=== PATIENT | male | born 1935 | race Caucasian/White ===

== ENCOUNTER → 2016-09-25 | Outpatient (CLI) | payer MEDICARE ==
[2016-09-25 13:00] LABS: HEMOGLOBIN 14.6 g/dL (13.7-18.0); WHITE BLOOD COUNT 6.9 x10^3/uL (3.4-10)
[2016-09-25 13:07] LABS: ASPARTATE AMINO TRANSFERASE 13 U/L (15-37); BLOOD UREA NITROGEN 17 mg/dL (7-18)
== END | disposition home or self-care (01) ==
LOC: CFH 08:36
PROVIDERS: ATTEND Nurse Practitioner Family
DX: M17.11 Unilateral primary osteoarthritis, right knee (principal); M25.461 Effusion, right knee; I12.9 Hypertensive chronic kidney disease with stage 1 through stage 4 chronic kidney disease, or unspecified chronic kidney disease; N18.3 Chronic kidney disease, stage 3 (moderate)
CPT/HCPCS: 36415; 80053; 84550; 85025

== ENCOUNTER → 2017-02-27 | Outpatient (CLI) | payer MEDICARE ==
[~2017-02-27] MED LIST: DOXA4TAB3 PO; FINA5TAB4 PO; LISI-170 PO; TRAM50TA2 PO
[2017-02-27 13:44] LABS: INTERNATIONAL NORMALIZED RATIO 1.01 (0.93-1.1); PROTHROMBIN TIME 10.5 Seconds (9.6-11.5)
[2017-02-27 13:48] LABS: ALANINE AMINOTRANSFERASE 16 U/L (12-78); ALBUMIN 3.5 g/dL (3.4-5.0); ANION GAP 8 mmol/L (5-15); CALCIUM 8.7 mg/dL (8.5-10.1); CHLORIDE 107 mmol/L (98-107); CREATININE 1.34 mg/dL (0.7-1.3)
[2017-02-27 13:50] LABS: BASOPHILS # (AUTO) 0.08 x10^3/uL (0-0.1); BASOPHILS % (AUTO) 1 % (0-1); EOSINOPHILS # (AUTO) 0.19 x10^3/uL (0-0.4); EOSINOPHILS % (AUTO) 2 % (1-7); LYMPHOCYTES # (AUTO) 1.14 x10^3/uL (1-3.4); LYMPHOCYTES % (AUTO) 12 % (22-44); MD NO; MEAN CORPUSCULAR HGB CONC 33.2 g/dL (33.2-36.2); MEAN CORPUSCULAR VOLUME 90.4 fL (81-97); MEAN PLATELET VOLUME 10.3 fL (7.4-10.4); MONOCYTES # (AUTO) 0.84 x10^3/uL (0.2-0.8); MONOCYTES % (AUTO) 9 % (2-9); NEUTROPHILS # (AUTO) 7.22 x10^3/uL (1.8-6.8); NEUTROPHILS % (AUTO) 76 % (42-75); PLATELET COUNT 210 x10^3/uL (130-400); RED CELL DISTRIBUTION WIDTH 14.9 % (9.4-14.8)
[2017-02-27 13:51] LABS: ALKALINE PHOSPHATASE 96 U/L (45-117); BILIRUBIN,TOTAL 0.6 mg/dL (0.2-1.0); TOTAL PROTEIN 7.3 g/dL (6.4-8.2)
[2017-02-27 14:02] LABS: HEMOGLOBIN A1C 5.6 % (4.2-6.3)
== END | disposition home or self-care (01) ==
LOC: STAR 12:38
PROVIDERS: ATTEND Orthopaedic Surgery
DX: Z01.818 Encounter for other preprocedural examination (principal); I12.9 Hypertensive chronic kidney disease with stage 1 through stage 4 chronic kidney disease, or unspecified chronic kidney disease; N18.3 Chronic kidney disease, stage 3 (moderate); M17.11 Unilateral primary osteoarthritis, right knee; Z87.891 Personal history of nicotine dependence; Z72.89 Other problems related to lifestyle; Z79.899 Other long term (current) drug therapy; I49.3 Ventricular premature depolarization
CPT/HCPCS: 36415; 80053; 83036; 85025; 85610; 85730; 87081; 93005

== ENCOUNTER 2018-04-03 17:09 | Inpatient (IN) | payer MEDICARE ==
[~2018-04-03] VITALS: Ht 195.6 cm; Wt 87.0 kg
[~2018-04-03 17:09] MED LIST changes: +MELO7.5T31 PO; +ONDA4TAB12 PO; +OXYC5TAB3 PO
[2018-04-03 17:46] LABS: BASOPHILS % (AUTO) 0 % (0-1); EOSINOPHILS % (AUTO) 2 % (1-7); LYMPHOCYTES # (AUTO) 0.53 x10^3/uL (1-3.4); LYMPHOCYTES % (AUTO) 5 % (22-44); MD NO; MEAN CORPUSCULAR HEMOGLOBIN 31.4 pg (27.5-34.5); MEAN CORPUSCULAR HGB CONC 33.8 g/dL (33.2-36.2); MEAN CORPUSCULAR VOLUME 92.7 fL (81-97); MONOCYTES # (AUTO) 1.28 x10^3/uL (0.2-0.8); MONOCYTES % (AUTO) 12 % (2-9); NEUTROPHILS # (AUTO) 8.43 x10^3/uL (1.8-6.8); NEUTROPHILS % (AUTO) 81 % (42-75); PLATELET COUNT 241 x10^3/uL (130-400); RED BLOOD COUNT 4.86 x10^6/uL (4.38-5.82); RED CELL DISTRIBUTION WIDTH 13.9 % (9.4-14.8)
[2018-04-03 17:57] LABS: ALANINE AMINOTRANSFERASE 24 U/L (12-78); ALBUMIN 3.2 g/dL (3.4-5.0); ANION GAP 6 mmol/L (5-15); CALCIUM 8.5 mg/dL (8.5-10.1); CHLORIDE 111 mmol/L (98-107); CREATININE 2.47 mg/dL (0.7-1.3)
[2018-04-03 17:59] LABS: ALKALINE PHOSPHATASE 70 U/L (45-117); BILIRUBIN,TOTAL 0.5 mg/dL (0.2-1.0); TOTAL PROTEIN 7.4 g/dL (6.4-8.2)
--- NOTE | 2018-04-03 18:47 | NUR ---
PT AMBULATORY FROM LOBBY TO ED ROOM 3 IN [facility].
--- NOTE | 2018-04-03 19:07 | NUR ---
REPORT FROM ERWIN LOPEZ. PT RESTING WITH NO NEEDS AT THIS TIME. CALL LIGHT IN REACH.
[2018-04-03] MEDS ORDERED: SODIUM CHLORIDE 0.9% 1,000ML IVBOLUS ONE (19:30)
[2018-04-03] MEDS ORDERED: SODIUM CHLORIDE FLUSH 10ML SYR IVF ONE (19:30)
--- NOTE | 2018-04-03 19:59 | NUR ---
PIV PLACED IN PT AND IVF STARTED. PT STOOL SPECIMEN WALKED TO LAB.
[2018-04-03] MEDS ORDERED: ACETAMINOPHEN 325 MG TABLET PO PRN (20:30)
[2018-04-03] MEDS ORDERED: LABETALOL 5MG/ML, 20ML IVPush PRN (20:30)
[2018-04-03] MEDS ORDERED: hydrALAzine 20 MG/ML, 1ML IVPush PRN (20:30)
[2018-04-03] MEDS ORDERED: LACTATED RINGERS 1,000 ML IV SCH (20:30)
[2018-04-03] MEDS ORDERED: GUAIFENESIN/DM 200-20MG, 10ML UDC PO PRN (20:30)
[2018-04-03] MEDS ORDERED: ONDANSETRON 2MG/ML, 2ML IVPush PRN (20:30)
[2018-04-03 20:39] LABS: CLOSTRIDIUM DIFFICILE ANTIGEN NEGATIVE; CLOSTRIDIUM DIFFICILE TOXIN NEGATIVE (Negative)
--- NOTE | 2018-04-03 21:00 | NUR ---
PT AMBULATED TO BATHROOM. VSS
[2018-04-03] MEDS ORDERED: METRONIDAZOLE PMX 500MG/100ML 100 ML ONE (21:41)
[2018-04-03] MEDS: METRONIDAZOLE PMX 500MG/100ML 100 ML IV SCH (21:45)
--- NOTE | 2018-04-03 21:49 | NUR ---
MED REC COMPLETE, ABX RUNNING. CALL LIGHT IN REACH
[2018-04-03 22:00] VITALS: BP 143/61
[2018-04-03] MEDS: HEPARIN 5,000 UNITS/ML, 1ML SQ SCH (22:51)
[2018-04-04 02:42] VITALS: BP 122/74
[2018-04-04] MEDS: METRONIDAZOLE PMX 500MG/100ML 100 ML IV SCH (06:04)
[2018-04-04 06:07] LABS: CHLORIDE 116 mmol/L (98-107)
[2018-04-04 06:11] LABS: ANION GAP 10 mmol/L (5-15); CREATININE 2.08 mg/dL (0.7-1.3)
[2018-04-04 06:22] LABS: MEAN CORPUSCULAR HEMOGLOBIN 30.9 pg (27.5-34.5); MEAN CORPUSCULAR HGB CONC 33.6 g/dL (33.2-36.2); MEAN CORPUSCULAR VOLUME 92.1 fL (81-97); MEAN PLATELET VOLUME 11.1 fL (7.4-10.4); PLATELET COUNT 205 x10^3/uL (130-400); RED BLOOD COUNT 4.29 x10^6/uL (4.38-5.82); RED CELL DISTRIBUTION WIDTH 14.4 % (9.4-14.8)
[2018-04-04 06:52] LABS: MD YES
[2018-04-04 07:20] LABS: <PLATELET ESTIMATE> ADEQUATE; <PLT MORPHOLOGY> NORMAL PLT MORPH; <RBC MORPHOLOGY> NORMAL; LYMPH#(MANUAL) 0.74 x10^3/uL (1-3.4); LYMPHS% (MANUAL) 8 % (22-44); MONOS#(MANUAL) 0.55 x10^3/uL (0.3-2.7); MONOS% (MANUAL) 6 % (2-9); SEG#(MANUAL) 7.91 x10^3/uL (1.8-6.8); SEGS% (MANUAL) 86 % (42-75)
[2018-04-04] MEDS: HEPARIN 5,000 UNITS/ML, 1ML SQ SCH ×2 (08:30→20:23)
[2018-04-04] MEDS: PANTOPROZOLE 40MG TABLET PO SCH ×2 (08:52→20:22)
[2018-04-04] MEDS: D5%-0.45NACL+KCL 20MEQ 1,000 ML IV SCH ×2 (08:52→20:21)
[2018-04-04] MEDS: FINASTERIDE 5 MG TABLET PO SCH (09:00)
[2018-04-04 11:43] VITALS: BP 112/57
[2018-04-04 14:00] VITALS: BP 112/64
[2018-04-04 18:51] VITALS: BP 110/63
[2018-04-04] MEDS ORDERED: DOXAZOSIN 2MG TABLET PO SCH (21:00)
[2018-04-05 01:50] VITALS: BP 132/78
[2018-04-05] MEDS: PANTOPROZOLE 40MG TABLET PO SCH (05:16)
[2018-04-05] MEDS: D5%-0.45NACL+KCL 20MEQ 1,000 ML IV SCH (05:17)
[2018-04-05 08:00] VITALS: BP 118/67
[2018-04-05] MEDS: HEPARIN 5,000 UNITS/ML, 1ML SQ SCH (09:14)
[2018-04-05] MEDS: FINASTERIDE 5 MG TABLET PO SCH (09:14)
[2018-04-05 11:03] LABS: ANION GAP 6 mmol/L (5-15); CALCIUM 7.7 mg/dL (8.5-10.1); CHLORIDE 116 mmol/L (98-107); CREATININE 1.55 mg/dL (0.7-1.3)
[2018-04-05 14:00] VITALS: BP 144/79
== END 2018-04-05 16:15 | disposition home or self-care (01) | DRG 371 ==
LOC: ED 20:13 → EDIP 20:14 → 4NOR 22:00
PROVIDERS: ADMIT Internal Medicine; ATTEND Internal Medicine
DX: A04.9 Bacterial intestinal infection, unspecified (principal); N17.0 Acute kidney failure with tubular necrosis; E86.0 Dehydration; E86.1 Hypovolemia; I11.9 Hypertensive heart disease without heart failure; K29.00 Acute gastritis without bleeding; Z96.651 Presence of right artificial knee joint
CPT/HCPCS: 36415; 71046; 80048; 80053; 83690; 85025; 87324; 89055; G0378; J1644; J3480; J7030; J7120

== ENCOUNTER 2020-05-26 11:11 | Outpatient (CLI) | payer MEDICARE ==
[~2020-05-26 11:11] MED LIST changes: +ONDA-89 PO; -ONDA4TAB12 PO; -OXYC5TAB3 PO; +OXYC5TAB98 PO
[2020-05-26 12:59] LABS: ALANINE AMINOTRANSFERASE 16 U/L (12-78); ALBUMIN 3.8 g/dL (3.4-5.0); CALCIUM 8.7 mg/dL (8.5-10.1); CHLORIDE 111 mmol/L (98-107)
[2020-05-26 13:02] LABS: ALKALINE PHOSPHATASE 81 U/L (45-117); BILIRUBIN,TOTAL 0.8 mg/dL (0.2-1.0); CREATININE 1.28 mg/dL (0.7-1.3); TOTAL PROTEIN 7.1 g/dL (6.4-8.2)
[2020-05-26 13:18] LABS: ANION GAP 5 mmol/L (5-15)
[2020-05-26 13:20] LABS: MICROSCOPIC INDICATED
== END 2020-05-26 23:59 | disposition home or self-care (01) ==
LOC: STAR 11:11
PROVIDERS: ATTEND Urology
DX: Z01.812 Encounter for preprocedural laboratory examination (principal); Z20.822 Contact with and (suspected) exposure to COVID-19; N40.1 Benign prostatic hyperplasia with lower urinary tract symptoms
CPT/HCPCS: 36415; 80053; 81001; 87086; 93005; U0003

== ENCOUNTER 2020-06-01 05:33 | Observation (INO) | payer MEDICARE ==
[~2020-06-01] VITALS: Ht 182.9 cm; Wt 90.0 kg
[2020-06-01] MEDS ORDERED: CHLORHEXIDINE 15 ML UDC PO ONE (06:30)
[2020-06-01] MEDS ORDERED: LACTATED RINGERS 1,000 ML IV SCH (06:30)
[2020-06-01] MEDS ORDERED: LIDOCAINE-MPF 1%, 2ML INFIL ONE (06:30)
[2020-06-01] MEDS ORDERED: FENTANYL PF 250 MCG/5ML ONE (07:02)
[2020-06-01] MEDS ORDERED: PHENYLEPHRINE 10 MG/ML ONE (07:23)
[2020-06-01] MEDS ORDERED: CEFAZOLIN 1,000 MG ONE (07:23)
[2020-06-01] MEDS ORDERED: ONDANSETRON 2MG/ML, 2ML ONE (07:23)
[2020-06-01] MEDS ORDERED: PROPOFOL 10 MG/ML, 20ML ONE (07:23)
[2020-06-01] MEDS ORDERED: ONDANSETRON 2MG/ML, 2ML IVPush PRN (08:00)
[2020-06-01] MEDS ORDERED: METOPROLOL 1 MG/ML, 5ML IV PRN (08:00)
[2020-06-01] MEDS ORDERED: hydrALAzine 20 MG/ML, 1ML IV PRN (08:00)
[2020-06-01] MEDS ORDERED: OXYcodone 5 MG/5 ML ORAL.SOL UDC PO PRN (08:00)
[2020-06-01] MEDS ORDERED: PROMETHAZINE 25 MG/ML, 1ML IVPush PRN (08:00)
[2020-06-01] MEDS ORDERED: EPHEDRINE 50 MG/ML, 1ML IVPush PRN (08:00)
[2020-06-01] MEDS ORDERED: ALBUTEROL/IPRATROPIUM 2.5MG/0.5MG, 3 ML NPPB PRN (08:00)
[2020-06-01] MEDS ORDERED: ACETAMINOPHEN 325 MG TABLET PO PRN (08:00)
[2020-06-01] MEDS ORDERED: ALBUTEROL SULFATE 2.5 MG/3 ML NPPB PRN (08:00)
[2020-06-01] MEDS ORDERED: LABETALOL 5MG/ML, 20ML IV PRN (08:00)
[2020-06-01] MEDS ORDERED: HYDROmorphone 1 MG/ML, 1ML INJ IVPush PRN (08:00)
[2020-06-01] MEDS ORDERED: HALOPERIDOL 5 MG/ML IV PRN (08:00)
[2020-06-01] MEDS ORDERED: DIPHENHYDRAMINE 50 MG/ML, 1ML IVPush PRN (08:00)
[2020-06-01] MEDS ORDERED: FENTANYL PF 100 MCG/2ML ONE (09:23)
[2020-06-01] MEDS ORDERED: ACETAMINOPHEN 650 MG/20.3 ML UDC ONE (09:23)
[2020-06-01] MEDS ORDERED: OXYcodone 5 MG/5 ML ORAL.SOL UDC ONE (09:24)
[2020-06-01] MEDS: FENTANYL PF 100 MCG/2ML IV PRN ×2 (09:27→09:41)
[2020-06-01] MEDS ORDERED: HYDROcodone/APAP 5/325 TABLET PO PRN (09:30)
[2020-06-01] MEDS ORDERED: ONDANSETRON 2MG/ML, 2ML IV PRN (09:30)
[2020-06-01 10:15] VITALS: BP 162/77
[2020-06-01 13:15] VITALS: BP 145/52
[2020-06-01] MEDS: LACTATED RINGERS 1,000 ML IV SCH (14:42)
[2020-06-01 19:04] VITALS: BP 129/68
[2020-06-02 00:11] VITALS: BP 123/69
[2020-06-02] MEDS: LACTATED RINGERS 1,000 ML IV SCH (02:05)
[2020-06-02 04:24] VITALS: BP 144/71
[2020-06-02 07:03] VITALS: BP 144/74
[2020-06-02] MEDS ORDERED: FINASTERIDE 5 MG TABLET PO SCH (09:00)
[2020-06-02] MEDS ORDERED: LISINOPRIL 20 MG TABLET PO SCH (09:00)
== END 2020-06-02 12:20 | disposition home or self-care (01) ==
LOC: OUT 05:33 → ORIP 09:03 → 4NE 10:08 → DCLOUNGE 06-02 12:11
PROVIDERS: ADMIT Urology; ATTEND Urology
DX: N40.1 Benign prostatic hyperplasia with lower urinary tract symptoms (principal); N13.8 Other obstructive and reflux uropathy; J45.909 Unspecified asthma, uncomplicated; I10 Essential (primary) hypertension; Z79.899 Other long term (current) drug therapy
CPT/HCPCS: 52601; 88305; G0378; J0690; J2370; J2405; J2704; J3010; J3490; J7120

== ENCOUNTER 2020-10-25 09:23 | Outpatient (CLI) | payer MEDICARE ==
[2020-10-25 09:49] LABS: BASOPHILS % (AUTO) 1 % (0-1); EOSINOPHILS % (AUTO) 5 % (1-7); LYMPHOCYTES % (AUTO) 21 % (22-44); MEAN CORPUSCULAR HEMOGLOBIN 30.4 pg (27.5-34.5); MEAN CORPUSCULAR HGB CONC 33.5 g/dL (33.2-36.2); MEAN PLATELET VOLUME 10.5 fL (7.4-10.4); MONOCYTES % (AUTO) 11 % (2-9); NEUTROPHILS % (AUTO) 63 % (42-75); PLATELET COUNT 179 x10^3/uL (130-400); RED BLOOD COUNT 5.14 x10^6/uL (4.38-5.82); RED CELL DISTRIBUTION WIDTH 15.8 % (9.4-14.8)
[2020-10-25 09:56] LABS: ALANINE AMINOTRANSFERASE 15 U/L (12-78); ALBUMIN 3.5 g/dL (3.4-5.0); ANION GAP 6 mmol/L (5-15); CALCIUM 8.8 mg/dL (8.5-10.1); CHLORIDE 109 mmol/L (98-107); CREATININE 1.28 mg/dL (0.7-1.3)
[2020-10-25 10:05] LABS: ALKALINE PHOSPHATASE 88 U/L (45-117); BILIRUBIN,TOTAL 0.7 mg/dL (0.2-1.0); CHOL/HDL RATIO 3.3; CHOLESTEROL, TOTAL 171 mg/dL (140-239); HDL CHOL % 30 % (26-37); HDL CHOLESTEROL (DIRECT) 52 mg/dL (40-60); LDL CHOLESTEROL,CALCULATED 109 mg/dL (54-169); LDL/HDL RATIO 2.1 (0.5-3.0); TRIGLYCERIDES 50 mg/dL (50-200); VLDL CHOLESTEROL 10 mg/dL (0-25)
== END 2020-10-25 23:59 | disposition home or self-care (01) ==
LOC: LAB 09:23
PROVIDERS: ATTEND Internal Medicine
DX: I12.9 Hypertensive chronic kidney disease with stage 1 through stage 4 chronic kidney disease, or unspecified chronic kidney disease (principal); N18.31 Chronic kidney disease, stage 3a; M15.0 Primary generalized (osteo)arthritis; N40.1 Benign prostatic hyperplasia with lower urinary tract symptoms; R05 Cough; R06.2 Wheezing; R53.83 Other fatigue
CPT/HCPCS: 36415; 80053; 80061; 82306; 82570; 83970; 84100; 84156; 84443; 84550; 85025